=== PATIENT | male | born 1985 | race African-American/Black ===

== ENCOUNTER 2020-04-03 19:43 | Emergency (ER) | payer OTHER ==
[2020-04-03 19:51] VITALS: TEMP 98.6; BMI 26.1
[2020-04-03 21:23] LABS: BASO % 0.4 % (0-2.0); EOS % 0.4 % (0-4.5); HEMATOCRIT 45.6 % (35.4-49); LYMPH % 11.4 % (8-40); MCH 29.1 pg (25.7-33.7); MEAN CELL VOLUME 88.1 fl (80-96); MEAN PLT VOLUME 8.9 fl (7.5-11.1); MONO % 5.3 % (3.8-10.2); NEUT % 82.5 % (42.8-82.8); PLATELET COUNT 286 K/MM3 (134-434); RBC 5.17 M/mm3 (4.00-5.60); RDW 13.5 % (11.9-15.9)
[2020-04-03 21:29] LABS: INR 1.02 (0.83-1.09); PROTHROMBIN TIME (PATIENT) 12.3 SEC (9.7-13.0)
[2020-04-03 21:32] LABS: ACTIVATED PTT 34.6 SECONDS (25.2-36.5)
[2020-04-03 21:41] LABS: CHLORIDE 107 mmol/L (98-107); POTASSIUM 4.2 mmol/L (3.5-5.1); SODIUM 138 mmol/L (136-145)
[2020-04-03 21:44] LABS: BLOOD UREA NITROGEN 21.5 mg/dL (7-18)
[2020-04-03 21:45] LABS: ALBUMIN 4.5 g/dl (3.4-5.0); ANION GAP 11 MMOL/L (8-16); CALCIUM 10.2 mg/dL (8.5-10.1); CO2 21 mmol/L (21-32); GLUCOSE,RANDOM 81 mg/dL (74-106); LIPASE 105 U/L (73-393)
[2020-04-03 21:48] LABS: CREATININE 1.2 mg/dL (0.55-1.3); SGOT/AST 22 U/L (15-37); SGPT/ALT 30 U/L (13-61)
[2020-04-03 21:50] LABS: BILIRUBIN,TOTAL 0.4 mg/dL (0.2-1); TOT PROT 8.2 g/dl (6.4-8.2)
[2020-04-03 21:51] LABS: ALK PHOS 84 U/L (45-117)
[2020-04-03] MEDS ORDERED: ACETAMINOPHEN 1000 MG/100 ML VIAL (NON FORMULARY) IVPB ONE (22:40)
[2020-04-03] MEDS ORDERED: ACETAMINOPHEN INJECTION 100 ML IVPB ONE (22:42)
[2020-04-04] MEDS ORDERED: KETOROLAC TROMETHAMINE 15 MG/ML VIAL IVPUSH ONE (00:10)
[2020-04-04 00:12] VITALS: BP 114/72; PULSE 67
[2020-04-04] MEDS ORDERED: KETOROLAC TROMETHAMINE 15 MG/ML VIAL ONE (00:23)
[2020-04-04 01:14] LABS: EPI CELLS 1 /uL (0-25.1); HYALINE CASTS 1 /uL (0-3.1); PH,URINE 5.5 (5.0-8.0); URINE APPEARANCE CLEAR; URINE BACTERIA 5 /uL (0-1359); URINE BILIRUBIN NEGATIVE (NEGATIVE); URINE COLOR YELLOW; URINE GLUCOSE (UA) NEGATIVE (NEGATIVE); URINE KETONE 1+ (NEGATIVE); URINE LEUK ESTERASE NEGATIVE (NEGATIVE); URINE NITRITE NEGATIVE (NEGATIVE); URINE PROTEIN NEGATIVE (NEGATIVE); URINE RBC 45 /uL (0-23.9); URINE UROBILINOGEN 0.2 mg/dL (0.2-1.0); URINE WBC 2 /uL (0-25.8)
== END 2020-04-04 02:20 | disposition home or self-care (01) ==
LOC: JER 19:43
PROC: 3E033NZ Introduction of Analgesics, Hypnotics, Sedatives into Peripheral Vein, Percutaneous Approach (ICD-10-PCS; principal; 2020-04-03)
PROC: 3E0233Z Introduction of Anti-inflammatory into Muscle, Percutaneous Approach (ICD-10-PCS; 2020-04-04)
DX: S86.919A Strain of unspecified muscle(s) and tendon(s) at lower leg level, unspecified leg, initial encounter (principal); S29.011A Strain of muscle and tendon of front wall of thorax, initial encounter; S00.83XA Contusion of other part of head, initial encounter; Z04.1 Encounter for examination and observation following transport accident
CPT/HCPCS: 36415; 70450-TC; 71260-TC; 72125-TC; 73523-TC-FY; 73552-TC-RT-FY; 73562-TC-RT-FY; 73590-TC-RT-FY; 73610-TC-RT-FY; 73630-TC-RT-FY; 74177-TC; 80053; 81003; 82550; 82553; 83605; 83690; 84484; 85025; 85610; 85730; 86850; 86900; 86901; 93005; 93010; 99285-25; J0131